=== PATIENT | female | born 1985 | race African-American/Black ===

== ENCOUNTER 2020-08-15 08:38 | Emergency (ER) | payer SELFPAY ==
[2020-08-15] MEDS ORDERED: Ondansetron ODT 4 MG TAB ONE (09:01)
[2020-08-15] MEDS ORDERED: Morphine 4 MG/ML VIAL ONE (09:01)
[2020-08-15] MEDS ORDERED: Lidocaine 1% PF 5 ML VIAL ONE (09:01)
== END 2020-08-15 09:50 | disposition home or self-care (01) ==
LOC: ERS 08:38
DX: N75.0 Cyst of Bartholin's gland (principal)
CPT/HCPCS: 56420; 96372; J2270; Q0162